=== PATIENT | female | born 1940 | race Caucasian/White ===

== ENCOUNTER 2017-11-25 13:11 | Outpatient (CLI) | payer OTHER, MEDICARE | END 2017-11-25 13:12 | disposition critical access hospital (66) | LOC: EMS 13:11 | PROVIDERS: ATTEND Surgery | DX: S01.111A Laceration without foreign body of right eyelid and periocular area, initial encounter (principal); W01.198A Fall on same level from slipping, tripping and stumbling with subsequent striking against other object, initial encounter; Y93.01 Activity, walking, marching and hiking; Y92.481 Parking lot as the place of occurrence of the external cause | CPT/HCPCS: A0425; A0429 ==

== ENCOUNTER 2017-11-25 13:51 | Emergency (ER) | payer OTHER, MEDICARE ==
[2017-11-25] MEDS ORDERED: ACETAMINOPHEN 325 MG TABLET PO STA (13:56)
--- NOTE | 2017-11-25 14:05 | ED Physician Documentation ---
PD HPI HEAD INJURY - Stated complaint Stated Complaint: GLF - Chief complaint Chief Complaint: Trauma Hd/Nk - History obtained from History obtained from: Patient - History of Present Illness Mechanism of head injury: Fell (She tripped over curb and landed face first on the ground. There was no loss of consciousness and she is not anticoagulated. She is a mild headache in the forehead wound. Her tetanus is up-to-date. No other injuries and she has been ambulatory since the accident.) Review of Systems Ears: denies: Loss of hearing, Ear pain Nose: denies: Rhinorrhea / runny nose, Congestion GI: denies: Abdominal Pain, Nausea, Vomiting PD PAST MEDICAL HISTORY - Past Medical History Cardiovascular: High cholesterol Musculoskeletal: Fibromyalgia - Past Surgical History Past Surgical History: Yes General: Cholecystectomy - Present Medications Home Medications: Ambulatory Orders Medication Instructions Recorded Confirmed Acetaminophen 500 mg PO Q6HR PRN 09/20/14 09/20/14 Atenolol 50 mg PO DAILY 09/20/14 09/20/14 Atorvastatin Calcium 80 mg PO DAILY 09/20/14 09/20/14 Ezetimibe [Zetia] 10 mg PO DAILY 09/20/14 09/20/14 Folic Acid 1 mg PO DAILY 09/20/14 09/20/14 Omeprazole 20 mg PO BID 09/20/14 09/20/14 Phenazopyridine [Pyridium] 200 mg PO TID 3 Days tablet 09/20/14 Potassium Chloride 10 meq PO DAILY 09/20/14 09/20/14 Prednisone 6 mg PO DAILY 09/20/14 09/20/14 Trazodone HCl 50 mg PO DAILY 09/20/14 09/20/14 cephALEXin [Cephalexin] 500 mg PO TID #20 capsule 09/20/14 - Allergies Allergies/Adverse Reactions: Allergies Allergy/AdvReac Type Severity Reaction Status Date / Time codeine Allergy Unknown Verified 11/25/17 13:59 guaifenesin Allergy Unknown Verified 11/25/17 13:59 [From Dilaudid Cough] hydrocodone Allergy Unknown Verified 11/25/17 13:59 hydromorphone HCl * Allergy Unknown Verified 11/25/17 13:59 [From Dilaudid] methadone Allergy Unknown Verified 11/25/17 13:59 morphine Allergy Unknown Verified 11/25/17 13:59 oxycodone Allergy Unknown Verified 11/25/17 13:59 Penicillins Allergy Unknown Verified 11/25/17 13:59 Sulfa (Sulfonamide Allergy Unknown Verified 11/25/17 13:59 Antibiotics) tramadol Allergy Unknown Verified 11/25/17 13:59 - Social History Does the pt smoke?: No Smoking Status: Never smoker Does the pt drink ETOH?: Yes Does the pt have substance abuse?: No - POLST Patient has POLST: No PD ED PE NORMAL - Vitals Vital signs reviewed: Yes - General General: Alert and oriented X 3, No acute distress - HEENT HEENT: PERRL, EOMI, Other (There is a stellate very shallow laceration of the right side of forehead with an underlying hematoma and bruising already starting. There is no facial bony tenderness around the orbits or infraorbital areas. No nasal tenderness.) - Neck Neck: Supple, no meningeal sign, No bony TTP - Abdomen Abdomen: Non tender - Back Back: No spinal TTP - Extremities Extremities: No deformity, No tenderness to palpate, Normal ROM s pain - Neuro Neuro: Alert and oriented X 3 Eye Opening: Spontaneous Motor: Obeys Commands Verbal: Oriented GCS Score: 15 - Psych Psych: Normal mood, Normal affect Results - Vitals Vitals: Vital Signs - 24 hr 11/25/17 11/25/17 13:55 15:48 Temperature 36.8 C 36.7 C Heart Rate 62 61 Respiratory 16 20 Rate Blood Pressure 203/89 H 202/89 H O2 Saturation 98 100 Oxygen O2 Source Room air - Rads (name of study) Head and C-spine CTs Radiology: EMP read contemporaneously (Forehead hematoma and degenerative joint disease in the spine without spinal fracture or intracranial hemorrhage.) PD MEDICAL DECISION MAKING - Sepsis Event Vital Signs: Vital Signs - 24 hr 11/25/17 11/25/17 13:55 15:48 Temperature 36.8 C 36.7 C Heart Rate 62 61 Respiratory 16 20 Rate Blood Pressure 203/89 H 202/89 H O2 Saturation 98 100 Oxygen O2 Source Room air Departure - Departure Disposition: 01 Home, Self Care Clinical Impression: Concussion Qualifiers: Encounter type: initial encounter Loss of consciousness presence/duration: without LOC Qualified Code(s): S06.0X0A - Concussion without loss of consciousness, initial encounter Contusion Qualifiers: Encounter type: initial encounter Contusion area: head Contusion of head detail : scalp Qualified Code(s): S00.03XA - Contusion of scalp, initial encounter Condition: Good Record reviewed to determine appropriate education?: Yes Instructions: ED Laceration Facial Skin Glue, ED Head Injury Closed Comments: Your blood pressure was elevated today on check into the emergency department. This does not mean that you have hypertension, it is a common phenomenon to come to the emergency department and have elevated blood pressure. I recommend that you see your primary care physician within the week to have it rechecked when you are feeling better.
[2017-11-25] MEDS ORDERED: ONDANSETRON ODT 4 MG TABLET TL STA (15:57)
--- NOTE | 2017-11-25 15:57 | CT Report ---
Procedure Date: 11/25/2017 Accession Number: [id number] / [id number] Procedure: CT - Head W/O CPT Code: FULL RESULT: EXAM: CT HEAD EXAM DATE: 11/25/2017 03:39 PM. CLINICAL HISTORY: Fall on concrete. Injury to forehead. COMPARISON: None. TECHNIQUE: Multiaxial CT images were obtained from the foramen magnum to the vertex. Reformats: Coronal. IV contrast: None. In accordance with CT protocol optimization, one or more of the following dose reduction techniques were utilized for this exam: automated exposure control, adjustment of mA and/or KV based on patient size, or use of iterative reconstructive technique. FINDINGS: Parenchyma: No intraparenchymal hemorrhage. No evidence of mass, midline shift, or CT findings of infarction. Nava-white differentiation is distinct. Extraaxial Spaces: Normal for age. No subdural or epidural collections identified. Ventricles: Normal in size and position. Sinuses and Orbits: Imaged paranasal sinuses, orbits, and mastoids show no significant abnormality. Bones: No evidence of fracture or calvarial defect. Other: Large right supraorbital and forehead scalp hematoma. IMPRESSION: No acute intracranial abnormality or skull fracture. [facility]
--- NOTE | 2017-11-25 16:01 | CT Report ---
Procedure Date: 11/25/2017 Accession Number: [id number] / [id number] Procedure: CT - Cervical Spine W/O CPT Code: FULL RESULT: EXAM: CT CERVICAL SPINE WITHOUT CONTRAST DATE: 11/25/2017 03:50 PM. HISTORY: Fall on concrete. Forehead injury. COMPARISONS: None. TECHNIQUE: Thin-section axial images were acquired of the cervical spine without contrast. Post-processing: Coronal and sagittal reformats. Other: None. In accordance with CT protocol optimization, one or more of the following dose reduction techniques were utilized for this exam: automated exposure control, adjustment of mA and/or KV based on patient size, or use of iterative reconstructive technique. FINDINGS: Alignment: No scoliosis or spondylolisthesis. Bones: No fracture or bone lesion. Interspace Levels/Facets: C1-C2: Insert degenerative changes. C2-C3: Unremarkable. C3-C4: Unremarkable. C4-C5: Advanced degenerative disk disease. Right foraminal narrowing. C5-C6: Advanced degenerative disk disease. Left foraminal narrowing. C6-C7: Unremarkable. C7-T1: Unremarkable. Musculature: Normal. No fatty atrophy. Other: Bilateral carotid calcification noted, with tortuous carotids looping near the midline The lung apices are clear. IMPRESSION: 1. No acute cervical spine abnormalities. 2. Advanced degenerative disk disease, C4-C5 and C5-C6. [facility]
[2017-11-25 16:19] VITALS: BP 197/89
== END 2017-11-25 16:52 | disposition home or self-care (01) ==
LOC: EDUNIT# → ED 13:51
DX: S06.0X0A Concussion without loss of consciousness, initial encounter (principal); S00.03XA Contusion of scalp, initial encounter; W01.198A Fall on same level from slipping, tripping and stumbling with subsequent striking against other object, initial encounter; Y92.89 Other specified places as the place of occurrence of the external cause; R03.0 Elevated blood-pressure reading, without diagnosis of hypertension
CPT/HCPCS: 70450; 72125; 99283; 99284; A9270; Q0162